=== PATIENT | female | born 1990 | race Caucasian/White ===

== ENCOUNTER 2022-06-03 15:22 | Outpatient (CLI) | payer OTHER, SELFPAY ==
[2022-06-03 18:57] LABS: Basophils Percent Auto 0.4 % (0.2-1.2); Eosinophils Absolute Auto 0.1 K/mm3 (0-0.3); Eosinophils Percent Auto 1.4 % (0-4.4); Hematocrit 40.3 % (37.0-47.0); Hemoglobin 13.4 g/dL (12.0-15.0); Immature Granulocyte Absolute 0.01 K/mm3 (0.00-0.031); Immature Granulocyte Percent A 0.2 % (0-0.5); Lymphocytes Absolute Auto 1.96 K/mm3 (0.9-3.2); Mean Corpuscular HGB Conc 33.3 g/dl (32-36); Mean Corpuscular Hemoglobin 30.7 pg (26-34); Mean Corpuscular Volume 92.2 fl (80-100); Mean Platelet Volume 11.4 fl (7.4-10.4); Monocytes Absolute Auto 0.4 K/mm3 (0.1-0.6); Neutrophils Absolute Auto 3.1 K/mm3 (1.3-6.7); Platelet Count Result 241 k/mm3 (150-375); Red Blood Count 4.37 M/mm3 (4.2-5.4); Red Cell Distribution Width 11.9 % (11.5-14.5); White Blood Count 5.6 K/mm3 (4.5-10.0)
[2022-06-03 19:19] LABS: Alanine Aminotransferase 18 U/L (6-35); Albumin Level 4.9 g/dL (3.5-5.1); Alkaline Phosphatase 41 U/L (38-126); Anion Gap 10 mmol/L (8-16); Aspartate Amino Transferase 33 U/L (14-36); Bilirubin,Total 0.4 mg/dL (0.2-1.3); Blood Urea Nitrogen 18 mg/dL (7-17); Calcium 9.1 mg/dL (8.4-10.2); Carbon Dioxide 26 mmol/L (22-30); Chloride 103 mmol/L (98-107); Estimated Glomerular Filt Rate > 60; Glucose 93 mg/dL (65-110); Potassium 4.2 mmol/L (3.4-5.0); Sodium 139 mmol/L (137-145)
[2022-06-03 21:02] LABS: Thyroid Stimulating Hormone Reflex 0.945 uIU/mL (0.465-4.68)
== END 2022-06-03 15:23 | disposition home or self-care (01) ==
LOC: ANHGOSHLAB 15:23
PROVIDERS: PCP Emergency Medicine; Visit Provider Emergency Medicine
DX: E23.2 Diabetes insipidus (principal); L65.9 Nonscarring hair loss, unspecified
CPT/HCPCS: 36415; 80053; 84443; 85025

== ENCOUNTER 2022-10-14 14:34 | Outpatient (CLI) | payer OTHER, SELFPAY ==
[2022-10-14 17:03] LABS: Anion Gap 9 mmol/L (8-16); Blood Urea Nitrogen 16 mg/dL (7-17); Calcium 9.4 mg/dL (8.4-10.2); Carbon Dioxide 29 mmol/L (22-30); Chloride 98 mmol/L (98-107); Estimated Glomerular Filt Rate > 60; Glucose 87 mg/dL (65-110); Sodium 136 mmol/L (137-145)
[2022-10-14 17:19] LABS: Free T4 Free Thyroxine 1.04 ng/mL (0.78-2.19)
[2022-10-14 17:31] LABS: Cortisol Baseline 7.11 ug/dL
[2022-10-14 17:32] LABS: Thyroid Stimulating Hormone 0.972 uIU/mL (0.465-4.680)
[2022-10-17 04:30] LABS: Prolactin 10.3 ng/mL (***)
[2022-10-18 15:46] LABS: Adrenocorticotropic Hormone 20 pg/mL (6-50)
[2022-10-27 08:44] LABS: IGFBP-1 16
== END 2022-10-14 14:35 | disposition home or self-care (01) ==
LOC: ANHWCLAB 14:37
PROVIDERS: PCP Emergency Medicine; Visit Provider Internal Medicine Endocrinology, Diabetes & Metabolism
DX: E23.2 Diabetes insipidus (principal); N64.52 Nipple discharge; R53.83 Other fatigue
CPT/HCPCS: 36415; 80048; 82024; 82533; 84146; 84439; 84443

== ENCOUNTER 2023-04-16 14:03 | Outpatient (CLI) | payer OTHER, SELFPAY ==
[2023-04-16 16:58] LABS: Anion Gap 6 mmol/L (8-16); Blood Urea Nitrogen 14 mg/dL (7-17); Calcium 9.6 mg/dL (8.4-10.2); Carbon Dioxide 30 mmol/L (22-30); Chloride 99 mmol/L (98-107); Estimated Glomerular Filt Rate > 60; Glucose 81 mg/dL (65-110); Potassium 3.6 mmol/L (3.4-5.0); Sodium 135 mmol/L (137-145)
== END 2023-04-16 14:04 | disposition home or self-care (01) ==
LOC: ANHWCLAB 14:03
PROVIDERS: PCP Emergency Medicine; Visit Provider Internal Medicine Endocrinology, Diabetes & Metabolism
DX: E23.2 Diabetes insipidus (principal)
CPT/HCPCS: 36415; 80048

== ENCOUNTER 2024-03-06 08:14 | Emergency (ER) | payer OTHER, SELFPAY ==
[2024-03-06 08:26] VITALS: BP 115/85; PULSE 100; RESP 16; TEMP 36.6; O2SAT 100
--- NOTE | 2024-03-06 08:32 | ED.URI ---
HPI - URI/Sore Throat General Chief Complaint: Upper Respiratory Infection Stated Complaint: Fever/Cough/Ear Pain History of Present Illness HPI Narrative: 33 y/o female presented for c/o cough x6 days and left ear pain for 2 days. States symptoms started with nasal congestion and sore throat which have resolved. She started taking Augmentin 4 days ago, then developed the ear pain. Has taken multiple otc meds without much improvement. Denies ear drainage, tinnitus, sob, wheezing or fever. Related Data Home Medications Medication Instructions Recorded Confirmed levonorgestrel 21 mcg/24 hr (up to 1 device intrauterine ONCE 06/03/22 03/06/24 8 years) 52 mg intrauterine device (Mirena) Allergies Allergy/AdvReac Type Severity Reaction Status Date / Time No Known Allergies Allergy Verified 03/06/24 08:32 Review of Systems Review of Systems: CONSTITUTIONAL: Denies body aches, fever, chills, or sweats. EYES: Denies visual changes, redness, or discharge. ENT: reports rhinorrhea, congestion, otalgia. CARDIOVASCULAR: Denies chest pain, palpitations, or edema. RESPIRATORY: reports cough denies dyspnea. GASTROINTESTINAL: Denies abdominal pain, nausea, vomiting, or diarrhea. SKIN: Denies rash, itching, or wounds. MUSCULOSKELETAL: Denies back pain, joint pain, or myalgia. NEUROLOGIC: Denies headache PMFSH Past Medical History Medical History delivery delivered Family History Family History Father Hypertension Other Ovarian ca Social History Social History Smoking status: Never smoker Alcohol intake: unknown Substance use: never Substance use type: does not use Lack of Transportation: No Lack of Food: Never True Current Housing: I Have Housing Concerned About Future Housing: No Difficulty Paying Gas/Electric Bills: No Difficulty Paying for Meds: No Currently Unemployed: No Education: Master's Degree or Higher Exam Narrative: GENERAL: well-appearing, no acute distress. EYES: conjunctivae clear ENT: Mucous membranes moist. Right TM pearly qureshi with normal light reflex; Left TM erythematous, bulging and intact with purulent effusion; canal not erythematous, no drainage no tragal tenderness. Oropharynx not erythematous without lesions. Tonsils not enlarged and without exudate. No drooling, no hoarseness, no trismus, uvula midline. No tripod positioning, hot potato voice, or soft palate swelling. NECK: Supple. No lymphadenopathy CHEST: Clear to auscultation, breath sounds equal. No respiratory distress, speaks in full sentences. HEART: Regular rate and rhythm. No murmur heard. SKIN: Warm, dry, no rash. NEURO: Alert and oriented x3. Course Course Emergency Course: Patient is aware of diagnosis, understands and agrees to treatment plan. Anticipatory guidance given. Patient agrees to follow-up as directed and is aware of reasons to seek care at the emergency department. Portions of this record may have been created with voice recognition software Level of Care: Express Care Visit Vital Signs Vital signs: Vital Signs Temperature 97.8 F 03/06/24 08:26 Pulse Rate 100 03/06/24 08:26 Respiratory Rate 16 03/06/24 08:26 Blood Pressure 115/85 03/06/24 08:26 Pulse Oximetry 100 03/06/24 08:26 Temperature 97.8 F 03/06/24 08:26 Pulse Rate 100 03/06/24 08:26 Respiratory Rate 16 03/06/24 08:26 Blood Pressure 115/85 03/06/24 08:26 Pulse Oximetry 100 03/06/24 08:26 MDM - URI/Sore Throat MDM Narrative Medical decision making narrative: Discussed physical exam findings consistent with bronchitis and left AOM. Reviewed Rx. 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 Advise supportive treatments.
== END 2024-03-06 08:45 | disposition home or self-care (01) ==
PROVIDERS: Emergency Provider Nurse Practitioner Family; PCP Emergency Medicine
DX: H66.92 Otitis media, unspecified, left ear (principal); J40 Bronchitis, not specified as acute or chronic
CPT/HCPCS: 99213; G0463